=== PATIENT | male | born 1975 | race Caucasian/White ===

== ENCOUNTER → 2017-02-01 13:55 | Outpatient (CLI) | payer MEDICARE ==
[2017-02-01 19:34] LABS: APPEARANCE CLEAR (CLEAR); BILIRUBIN NEGATIVE (NEGATIVE); COLOR YELLOW (YELLOW); GLUCOSE NEGATIVE (NEGATIVE); KETONE NEGATIVE (NEGATIVE); LEUKOCYTE ESTERASE TRACE (NEGATIVE); NITRITE NEGATIVE (NEGATIVE); PROTEIN NEGATIVE (NEGATIVE); UROBILINOGEN NORMAL (NORMAL)
[2017-02-01 19:36] LABS: RED CELLS - URINE 0-5 /hpf (0-5); WHITE CELLS - URINE 0-5 /hpf (0-5)
== END | disposition home or self-care (01) ==
LOC: D.RAD 13:55 → D.LABREF 13:55
PROVIDERS: Urology
DX: N20.0 Calculus of kidney (principal)

== ENCOUNTER 2017-02-18 05:32 | Day surgery (SDC) | payer MEDICARE ==
[2017-02-17 14:55] LABS: HEMATOCRIT 45.9 % (42.0-54.0); HEMOGLOBIN 15.9 g/dL (13.5-17.5); MCH 32.4 pg (26.0-34.0); MCHC 34.6 g/dL (31.0-37.0); MCV 93.7 fL (80.0-100.0); MEAN PLATELET VOLUME 9.5 fL (7.4-10.4); RBC 4.9 10x6/uL (4.20-6.10); RDW 12.5 % (11.5-14.5); WBC 8.3 10x3/uL (4.8-10.8)
[2017-02-17 14:58] LABS: CALC OSMOLALITY 286 mosm/kg (275-300); CALCIUM 8.7 mg/dL (8.5-10.1); CARBON DIOXIDE 27.9 mmol/L (21.0-32.0); CHLORIDE - SERUM 105 mmol/L (98-107); CREATININE - SERUM 0.9 mg/dL (0.6-1.3); GLUCOSE 90 mg/dL (74-106); SODIUM 143 mmol/L (136-145); UREA NITROGEN 18 mg/dL (7-18); eGFR NON AFRICAN AMERICAN > 90 mL/min (90-120)
[~2017-02-18] VITALS: Ht 167.6 cm; Wt 74.8 kg
[~2017-02-18 05:32] MED LIST: CELEXA20 MG PO; MULTIPLE VITAMI1 TA1 PO; VITAMIN E200 UNI1 PO
[2017-02-18 06:03] VITALS: BP 122/79; Ht 167.6 cm; Wt 74.8 kg
--- NOTE | 2017-02-18 09:36 | OP ---
PATIENT NAME: TAE MCFARLAND MEDICAL RECORD: [id number] :73 [facility] DATE: SURGEON: IKE RODRÍGUEZ MD DATE OF OPERATION: 02/18/2017 SURGEON: Ike Rodríguez MD. ANESTHESIA: TIVA by Debi Ya CRNA. PREOPERATIVE DIAGNOSES: Microhematuria, interstitial cystitis, left lower pole renal stone, 6 mm. FINDINGS: Nonobstructive prostate, single ureteral orifices bilaterally. No bladder tumors. Diffuse bladder inflammation with glomerulations. Left lower pole renal stone is radiodense. PROCEDURES: Cystoscopy, left ureteral stent insertion 6-Chinese x 24 cm with string attached, intravesical Rimso 50% times 50 mL instillation. BLOOD LOSS: None. CLINICAL HISTORY: This is a 41-year-old male with persistent microhematuria and symptoms of ongoing urinary tract infections, although he has negative urine cultures. He also has bilateral flank pain. The CT scan was performed and it showed a 6-mm left lower pole renal stone. In terms of his voiding, he has to avoid up to every 30 minutes. He also has suprapubic and bilateral flank pain prior to voiding. He has had symptoms of prostatitis "since age 19". He comes now to have cystoscopy for the microhematuria. I suspect he has interstitial cystitis and if I do see bladder inflammation, the plan is to instill intravesical Rimso, which is an anti-inflammatory agent. Also, for the left renal stone, we will insert a left ureteral stent and today, he will have left ESWL to treat the stone. The patient is not allergic to any medications and he was given [employer] vocational rehabilitation consultant to the OR. DESCRIPTION OF PROCEDURE: The patient was given IV sedation. He was then placed in the dorsal lithotomy position and prepped and draped. A 21-Chinese cystoscope with 30-degree lens was used for visualization. Normal saline was used for irrigation fluid. Findings are as outlined above. A Sensor wire was placed up the left ureteral orifice up to the renal pelvis. Over the wire, a 6-Chinese x 24 cm ureteral stent was inserted. Once the stent was in correct position, the wire was slowly withdrawn and the proximal end was seen to coil within the renal pelvis. We then withdrew the wire entirely. The distal end of the stent was pushed into the bladder using a pusher. The string on the distal end of the stent is maintained. The bladder was fully emptied through the cystoscope sheath. The cystoscope sheath was removed, leaving the string of the stent hanging out of the urethral meatus. The string was tied to itself in a knot. A red rubber catheter was then inserted into the bladder and the 50 mL of the Rimso solution was instilled into the bladder. The catheter was then removed, leaving the solution in the bladder. The string on the stent was then cut distal to the knot. The patient will be brought to the preoperative holding area. When the lithotripsy truck arrives, he will have lithotripsy later today. TRANSINT:[id number] Voice Confirmation ID: [id number] DOCUMENT ID: [id number] OPERATIVE REPORT [id number] TAE MCFARLAND, IKE Oliver MD at 0936 CC: [id number] DICTATION DATE: 02/18/17822 DIRECTOR OF RECRUITMENT AND ADMISSIONS: 02/18/[address] [facility] [address] [place] [address]
--- NOTE | 2017-02-18 14:10 | OP ---
PATIENT NAME: TAE MCFARLAND MEDICAL RECORD: [id number] :73 LOCATION:[facility] ADMISSION DATE: SURGEON: IKE RODRÍGUEZ MD DATE OF OPERATION: 02/18/2017 SURGEON: Ike Rodríguez MD. ANESTHESIA: MAC by Janett Lou CRNA. PREOPERATIVE DIAGNOSIS: Left lower pole renal stone, 6 mm. FINDINGS: Radiodense left renal stones. PROCEDURE: Left ESWL times 3000 shocks. ESTIMATED BLOOD LOSS: None. COMPLICATIONS: None. CLINICAL HISTORY: This is a 41-year-old male with a 6-mm left lower pole renal stone. Earlier today, he had cystoscopy and insertion of a left ureteral stent. He also has a history of chronic prostatitis and chronic UTI symptoms with negative urine cultures. He was found to have bladder inflammation and we also treated his bladder with Rimso earlier today. He comes now to have lithotripsy performed on the left renal stone. DESCRIPTION OF PROCEDURE: The patient was placed on the treatment table. The stone was identified and targeted in 2 planes. A 3000 shocks were given to the stone and was seen to break up. The patient will be discharged home today with a prescription for [place] 5/325 times 30 tablets with no refills and tamsulosin 0.4 mg p.o. q.h.s. times 30 tablets with no refills. He will be seen in followup in 2 weeks' time with a KUB. If at that time, the stone was completely gone and his stent will be removed by pulling on the string. TRANSINT:[id number] Voice Confirmation ID: [id number] DOCUMENT ID: [id number] IKE RODRÍGUEZ MD at 1410 CC: [id number] DICTATION DATE: 02/18/17 1342 CREAM BUYER: 02/18/17 1353 [address] [facility] [address] [place] [address]
== END 2017-02-18 14:00 | disposition home or self-care (01) ==
LOC: D.OPS 05:32 → D.PAN 07:30 → D.OPS 12:30
PROVIDERS: Anesthesiology
DX: N20.0 Calculus of kidney (principal); R31.29 Other microscopic hematuria; N30.10 Interstitial cystitis (chronic) without hematuria; F17.200 Nicotine dependence, unspecified, uncomplicated; K21.9 Gastro-esophageal reflux disease without esophagitis; Z01.812 Encounter for preprocedural laboratory examination

== ENCOUNTER → 2017-03-09 08:25 | Outpatient (CLI) | payer MEDICARE ==
[2017-02-18 06:03] VITALS: BMI 26.7
== END | disposition home or self-care (01) ==
LOC: D.RAD 03-05 10:45
DX: N20.0 Calculus of kidney (principal)